=== PATIENT | male | born 1955 | race Caucasian/White ===

== ENCOUNTER 2021-11-11 19:39 | Inpatient (IN) | payer MEDICARE, OTHER ==
[~2021-11-11] VITALS: Ht 167.6 cm; Wt 79.5 kg
[2021-11-11] MEDS ORDERED: IV NORMAL SALINE 1000 ML BAG IV ONE (19:45)
--- NOTE | 2021-11-11 19:58 | NUR ---
PT BIB [facility] 61 FROM HOME, FAMILY C/O AMS. PT FINISHED ATB FOR COVID/PNA 3 DAYS AGO.
--- NOTE | 2021-11-11 19:59 | NUR ---
DR. AMARAL AT BEDSIDE, MSE IN PROGRESS.
[2021-11-11 20:01] LABS: MEAN CORPUSCULAR VOLUME 96.7 fL (73.0-96.2); PLATELET COUNT (AUTO) 242 K/uL (152-348)
[2021-11-11 20:08] LABS: CREATININE 0.8 mg/dL (0.6-1.3); POTASSIUM 4.1 mmol/L (3.5-5.1)
[2021-11-11 20:20] LABS: BILIRUBIN,DIRECT 0.2 mg/dL (0.0-0.2); BILIRUBIN,TOTAL 0.5 mg/dL (0.2-1.0); TOTAL PROTEIN, SERUM 6.3 g/dL (6.4-8.2)
--- NOTE | 2021-11-11 20:51 | NUR ---
PT BEING TAKEN DOWN TO CT.
[2021-11-11] MEDS ORDERED: IV NORMAL SALINE 250 ML IV ONE (21:04)
[2021-11-11] MEDS ORDERED: SWABABLE VALVE TRANSFER SET EA MC ONE (21:04)
[2021-11-11] MEDS ORDERED: IOHEXOL 350 100 ML INFUS..BTL ONE (21:04)
[2021-11-11] MEDS ORDERED: CEFEPIME HCL 1 G in IV DEXTROSE 5% 50 ML IV ONE (21:15)
[2021-11-11] MEDS ORDERED: VANCOMYCIN IV 1,000 MG in IV DEXTROSE 5% 250 ML IV ONE (21:15)
--- NOTE | 2021-11-11 21:35 | NUR ---
PT RETURNED FROM CT, STABLE CONDITION.
[2021-11-11] MEDS ORDERED: CEFEPIME HCL 1 G VIAL ONE (21:47)
[2021-11-11] MEDS ORDERED: VANCOMYCIN IV 200 ML ONE (21:47)
--- NOTE | 2021-11-11 23:03 | NUR ---
PT AMBULATED TO RESTROOM, STEADY GAIT. NO DIZZINESS, NO SOB OR LABORED BREATHING.
--- NOTE | 2021-11-11 23:16 | NUR ---
DR. DURAN PAGED FOR EPIC PANEL CALL.
[2021-11-12] MEDS ORDERED: REMEDY ESSENTIAL ZINC PASTE 113 GM TP PRN
[2021-11-12] MEDS ORDERED: ONDANSETRON 4 MG/2 ML VIAL IV PRN
[2021-11-12] MEDS ORDERED: MAGNESIUM HYDROXIDE 30 ML LIQUID UDC PO PRN
[2021-11-12] MEDS ORDERED: ACETAMINOPHEN 325 MG TABLET PO PRN
--- NOTE | 2021-11-12 00:45 | NUR ---
GAVE REPORT TO
[2021-11-12 00:58] LABS: *BILIRUBIN,URIN NEGATIVE (NEGATIVE); *BLOOD, URINE NEGATIVE (NEGATIVE); *CLARITY,URINE CLEAR (CLEAR); *COLOR,URINE YELLOW (YELLOW); *KETONES,URINE NEGATIVE (NEGATIVE); *UROBILINOGEN,URINE 0.2 E.U./dl (NORMAL); LEUKOCYTE ESTERASE ,URINE NEGATIVE (NEGATIVE); NITRITE, URINE NEGATIVE (NEGATIVE); UGLUCOSE NEGATIVE (NEGATIVE)
[2021-11-12] MEDS ORDERED: PIPERACILLIN SODIUM/TAZOBACTAM 3.375 G in IV DEXTROSE 5% 50 ML IV SCH ×2 (01:30→08:00)
[2021-11-12] MEDS ORDERED: PIPERACILLIN/TAZOBACTAM/D5W 100 ML IV ONE (01:59)
--- NOTE | 2021-11-12 01:59 | NUR ---
Pt. admitted to tele, under care of Dr. Lisa Marie Dx: sepsis Belongs List completed
--- NOTE | 2021-11-12 02:05 | NUR ---
Received pt from er via wheelchair. Pt in no acute distress. Under the care of [facility] [employer]. dx; sepsis. Admission process and care plan initiated. Belonging list done. Pt doesn't want to change to hospital gown. Skin assessment of the head and arms only where assessed because pt refusing to be assess and take off his clothes. Some questions pt doesn't want to anser. Told pt he is on NPO. PT aware. Told pt he can't drink the water bottle. He stated he knows and he will use it as a phone stand for his cp. half-way assessment done. Pt stable. Will continue to monitor.
[2021-11-12 02:28] VITALS: BP 113/91
[2021-11-12] MEDS: IV NS 1000 ML 1,000 ML IV PRN (02:56)
[2021-11-12 04:52] VITALS: BP 119/66
[2021-11-12 06:24] LABS: HEMATOCRIT 25.3 % (36.7-47.1); MEAN CORPUSCULAR HEMOGLOBIN 29.7 uug (23.8-33.4); MEAN CORPUSCULAR VOLUME 97.1 fL (73.0-96.2); PLATELET COUNT (AUTO) 268 K/uL (152-348)
--- NOTE | 2021-11-12 06:40 | NUR ---
Pt slept intermittently. Pt in no acute distress. IV intact.Prescribed medication given and pt tolerated it well.Pt on room air but pt is coughing.Pt on sinus rhythm. Safety and comfort provided. All needs are met. Will endorse to incoming nurse for continuity of care.
[2021-11-12 06:42] LABS: CREATININE 0.8 mg/dL (0.6-1.3); MAGNESIUM 2.2 mg/dL (1.8-2.4); PHOSPHOROUS 3.9 mg/dL (2.5-4.9); POTASSIUM 3.9 mmol/L (3.5-5.1)
[2021-11-12] MEDS: VANCOMYCIN IV 1,250 MG in IV DEXTROSE 5% 250 ML IV SCH ×2 (10:04→21:27)
[2021-11-12 11:09] VITALS: BP 113/66
[2021-11-12] MEDS ORDERED: ALBU2.5V38 IH (13:34)
[2021-11-12] MEDS ORDERED: FOLI1TAB94 PO (13:34)
[2021-11-12] MEDS ORDERED: CARV3.122 PO (13:34)
[2021-11-12] MEDS ORDERED: ATOR20TA PO (13:34)
[2021-11-12] MEDS ORDERED: ASPI81TA31 PO (13:34)
[2021-11-12] MEDS ORDERED: TIOT18CA3 IH (13:34)
[2021-11-12] MEDS ORDERED: OMEG-166 PO (13:34)
[2021-11-12] MEDS ORDERED: TIZA4CAP6 PO (13:34)
[2021-11-12 15:13] VITALS: BP 118/56
[2021-11-12] MEDS: PIPERACILLIN SODIUM/TAZOBACTAM 3.375 G in IV DEXTROSE 5% 100 ML IV SCH (15:34)
--- NOTE | 2021-11-12 18:12 | NUR ---
Patient resting in bed. AOx4. On room air. No signs of acute distress. Patient denies pain/ discomfort. Patient denies SOB/ . 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 IV access patent and intact. Compliant with medications and care. Needs anticipated and met. Will endorse to incoming shift for continuity of care.
[2021-11-12 20:03] VITALS: BP 101/56
--- NOTE | 2021-11-12 22:12 | NUR ---
Patient in bed alert x4 .On Ra.No s/s of distress noted.Denies pain at this time. 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 VSs .Will continue to monitor.
[2021-11-13] VITALS: BP 125/77
[2021-11-13] MEDS: PIPERACILLIN SODIUM/TAZOBACTAM 3.375 G in IV DEXTROSE 5% 100 ML IV SCH ×3 (00:09→16:12)
[2021-11-13 04:03] VITALS: BP 134/74
[2021-11-13] MEDS: IV NS 1000 ML 1,000 ML IV PRN (06:31)
[2021-11-13] MEDS ORDERED: GUAIFENESIN/CODEINE 5 ML LIQUID UDC PO PRN (07:45)
[2021-11-13] MEDS ORDERED: ALBUTEROL SULFATE 2.5 MG/3 ML NEBU IH PRN (08:00)
[2021-11-13] MEDS: OMEGA-3 FATTY ACIDS/FISH OIL CAPSULE PO SCH (09:04)
[2021-11-13] MEDS: ASPIRIN 81 MG TAB.CHEW PO SCH (09:04)
[2021-11-13] MEDS: FOLIC ACID 1 MG TABLET PO SCH (09:04)
[2021-11-13 10:07] LABS: IRON, SERUM 25 ug/dL (50-175)
[2021-11-13 11:54] VITALS: BP 103/70
[2021-11-13] MEDS: VANCOMYCIN IV 1,250 MG in IV DEXTROSE 5% 250 ML IV SCH (13:32)
[2021-11-13 16:10] VITALS: BP 110/72
--- NOTE | 2021-11-13 17:57 | NUR ---
Patient refused the rest of infusion for Zosyn. Patient completed 2 hours of antibiotics. Patient refuses to continue medication. Will endorse to PM nurse.
--- NOTE | 2021-11-13 18:05 | NUR ---
Able to reason with patient to complete antibiotics. Patient is not covid. IV pump placed in patients room for patients preference. Will endorse info to PM nurse
--- NOTE | 2021-11-13 19:30 | NUR ---
Received pt awake, alert and orientedx4. Pt in no acute distress. Iv intact. Pt noted have cough. Safety and comfort provided.Pt refusing his IV fluid normal saline. He stated He just wants his antibiotic. Will continue to monitor.
[2021-11-13 20:15] VITALS: BP 128/81
[2021-11-13] MEDS ORDERED: ATORVASTATIN 20 MG TABLET PO SCH (21:00)
[2021-11-14] MEDS: VANCOMYCIN IV 1,250 MG in IV DEXTROSE 5% 250 ML IV SCH ×2
[2021-11-14 00:21] VITALS: BP 116/73
[2021-11-14] MEDS: PIPERACILLIN SODIUM/TAZOBACTAM 3.375 G in IV DEXTROSE 5% 100 ML IV SCH ×2 (00:24→08:41)
--- NOTE | 2021-11-14 00:43 | NUR ---
Pt Vancomycin held and wasted properly.
[2021-11-14 04:56] VITALS: BP 116/73
--- NOTE | 2021-11-14 06:25 | NUR ---
Pt slept intermittently. Prescribed medication given and pt tolerated it well. Pt refused for his IV fluid of Normal saline. Pt on sinus rhythm and sometimes sinus tachycardia at 120. Pt in no acute distress.Pt Safety and comfort provided. Will endorse to incoming nurse for continuity of care.
[2021-11-14 07:07] LABS: HEMATOCRIT 23.4 % (36.7-47.1); MEAN CORPUSCULAR HEMOGLOBIN 30.7 uug (23.8-33.4); PLATELET COUNT (AUTO) 270 K/uL (152-348)
[2021-11-14 07:20] LABS: POTASSIUM 4.1 mmol/L (3.5-5.1)
[2021-11-14] MEDS: OMEGA-3 FATTY ACIDS/FISH OIL CAPSULE PO SCH (08:40)
[2021-11-14] MEDS: ASPIRIN 81 MG TAB.CHEW PO SCH (08:40)
[2021-11-14] MEDS: FOLIC ACID 1 MG TABLET PO SCH (08:40)
[2021-11-14] MEDS ORDERED: VANCOMYCIN IV 1,250 MG in IV DEXTROSE 5% 250 ML IV SCH ×2 (09:00→12:00)
--- NOTE | 2021-11-14 10:08 | NUR ---
Family called regarding father stating they do not want any procedures done to patient regarding his lung cancer or if abscess. Charge nurse and doctor notified.
--- NOTE | 2021-11-14 10:15 | NUR ---
Dr. Dennis talked to patient and family regarding no biopsy's to be performed and state for discharge.
--- NOTE | 2021-11-14 10:57 | NUR ---
Pharmacy notified to push Becky to a later time due to patient receiving Zosyn at 0900 at 25cc/hr for a total of 4 hours
[2021-11-14 11:56] VITALS: BP 120/74
[2021-11-14] MEDS ORDERED: PIPERACILLIN SODIUM/TAZOBACTAM 3.375 G in IV DEXTROSE 5% 50 ML IV SCH (14:00)
[2021-11-14] MEDS ORDERED: AMOX-430 PO (15:10)
[2021-11-14 16:12] VITALS: BP 130/73
--- NOTE | 2021-11-14 17:13 | NUR ---
Patient discharged from unit at 1714. Patient given discharge education and packet before discharge. IV site removed. ID badge removed.
== END 2021-11-14 17:16 | disposition home health service (06) | DRG 181 ==
LOC: ER 19:41 → TELE3 23:59
PROVIDERS: ADMIT Internal Medicine; ATTEND Hospitalist
DX: C34.91 Malignant neoplasm of unspecified part of right bronchus or lung (principal); J90 Pleural effusion, not elsewhere classified; E44.0 Moderate protein-calorie malnutrition; Z86.16 Personal history of COVID-19; E88.09 Other disorders of plasma-protein metabolism, not elsewhere classified; I25.10 Atherosclerotic heart disease of native coronary artery without angina pectoris; I10 Essential (primary) hypertension; E78.5 Hyperlipidemia, unspecified; E11.9 Type 2 diabetes mellitus without complications; Z87.891 Personal history of nicotine dependence; Z92.3 Personal history of irradiation; Z95.1 Presence of aortocoronary bypass graft; D53.9 Nutritional anemia, unspecified; Z92.21 Personal history of antineoplastic chemotherapy; I11.9 Hypertensive heart disease without heart failure; R16.0 Hepatomegaly, not elsewhere classified; Z79.899 Other long term (current) drug therapy; Z20.822 Contact with and (suspected) exposure to COVID-19; J44.9 Chronic obstructive pulmonary disease, unspecified; Z68.28 Body mass index [BMI] 28.0-28.9, adult
CPT/HCPCS: 36415; 70030-TC; 70450; 71045; 71275; 83550; 83605; 83735; 84100; 84153; 85025; 85730; 87040; 87086; 93005; A4663; G0378; J0692; J2543; J3370; J7030; J7050; J7060; Q9967